=== PATIENT | male | born 1995 | race African-American/Black ===

== ENCOUNTER 2021-05-09 19:12 | Emergency (ER) | payer OTHER, SELFPAY ==
--- NOTE | ~2021-05-09 | CT_ITS ---
EXAMINATION: CTA chest PE protocol DATE: 05/09/2021 23:59 INDICATION: Chest pain with multiple masses on prior chest radiograph. TECHNIQUE: Computed tomography (CT) pulmonary angiogram of the chest was performed with 100 mL Omnipa que-350 intravenous contrast. Additional 3D reconstructions utilizing coronal maximum intensity proje ction (MIP) were performed. Automated exposure control and iterative reconstruction technique were em ployed. The dose-length product was 222.48 mGy-cm. COMPARISON: None FINDINGS: Excellent contrast opacification of the pulmonary arteries. There is mild streak artifact from dense contrast in the superior vena cava and right atrium. No significant respiratory motion artifact yield ing diagnostic quality study which demonstrates no pulmonary embolism. Again seen are multiple masses scattered throughout both lungs, many containing central air bronchograms without evident architectu ral distortion. In addition there are regions with numerous tiny pulmonary nodules both along the mar gins of the masses as well as along the pleura, subtalar and bronchovascular structures. Appearance w ould be most consistent with sarcoidosis. No pleural effusion or pulmonary edema. Heart size is tatianna l. No pericardial effusion. There is bilateral hilar and mediastinal lymphadenopathy. Thoracic aorta is normal in caliber with no dissection. Visualized upper abdomen including the liver are unremarkabl e. No pathologically enlarged upper abdominal lymphadenopathy. Bones are unremarkable. IMPRESSION: 1. Diagnostic quality study demonstrating no pulmonary embolus. 2. Numerous tiny pulmonary nodules and multiple larger air bronchogram containing masses which along with the distal and bilateral hilar lymphadenopathy is most suspicious for sarcoidosis. Differential would include less likely lymphoma or other atypical infection. Reviewed, dictated and finalized at location A. IMPRESSION: 1. Diagnostic quality study demonstrating no pulmonary embolus. 2. Numerous tiny pulmonary nodules and multiple larger air bronchogram containi ng masses which along with the distal and bilateral hilar lymphadenopathy is mo st suspicious for sarcoidosis. Differential would include less likely lymphoma or other atypical infection.
--- NOTE | ~2021-05-09 | XR_ITS ---
EXAMINATION: XR chest 2V DATE: 05/09/2021 20:09 INDICATION: Shortness of breath. Left-sided chest pain and coughing. TECHNIQUE: PA and lateral views of the chest were obtained. COMPARISON: None FINDINGS: Multiple bilateral nodular and masslike opacities throughout both lungs relatively sparing the bases and anterior lungs. No pulmonary edema, pleural effusion or pneumothorax. The cardiomediastinal silho uette is normal. Visualized bones and soft tissues are unremarkable. IMPRESSION: 1. Multiple nodular and masslike opacities throughout both lungs which given patient age most likely infectious in etiology . Or less likely differential would include metastatic disease in the appropri ate clinical setting or other more rare lung diseases such as sarcoidosis or pneumoconioses. Correlat e clinically and if indicated could consider chest CT for further evaluation as clinically indicated. Reviewed, dictated and finalized at location A. IMPRESSION: 1. Multiple nodular and masslike opacities throughout both lungs which given pa tient age most likely infectious in etiology . Or less likely differential woul d include metastatic disease in the appropriate clinical setting or other more rare lung diseases such as sarcoidosis or pneumoconioses. Correlate clinically and if indicated could consider chest CT for further evaluation as clinically i ndicated.
--- NOTE | 2021-05-09 19:48 | ECG_ITS ---
Measurements Intervals [place] Rate: 65 P: 51 [place]: 119 QRS: 63 QRSD: 88 T: 53 QT: 365 QTc: 382 Interpretive Statements SINUS RHYTHM WITH SINUS ARRHYTHMIA WITH SHORT [place] INTERVAL MINIMAL Q WAVES- ANTEROLATERAL LEADS ST ELEVATION IN DIFFUSE LEADS- PROBABLY EARLY REPOLARIZATION ABNORMALITY BORDERLINE ECG Electronically Signed On 05-10-2021 5:47:41 CDT by Willie Bravo D.O.
[2021-05-09 20:15] VITALS: BP 140/69; PULSE 80; RESP 12; TEMP 37.3; O2SAT 100
[2021-05-09 20:58] LABS: Basophils Absolute Auto 0.1 K/mm3 (0.0-0.1); Basophils Percent Auto 0.4 % (0.2-1.2); Eosinophils Absolute Auto 0.4 K/mm3 (0-0.3); Eosinophils Percent Auto 3.3 % (0-4.4); Hemoglobin 13.6 g/dL (14.0-18.0); Immature Granulocyte Absolute 0.05 K/mm3 (0.00-0.031); Immature Granulocyte Percent A 0.4 % (0-0.5); Lymphocytes Absolute Auto 1.52 K/mm3 (0.9-3.2); Lymphocytes Percent Auto 13.1 % (18.3-44.2); Mean Corpuscular HGB Conc 30.2 g/dl (32-36); Mean Corpuscular Hemoglobin 24.8 pg (26-34); Mean Corpuscular Volume 82.1 fl (80-100); Mean Platelet Volume 10.2 fl (7.4-10.4); Monocytes Percent Auto 8.4 % (2.6-8.5); Neutrophils Absolute Auto 8.6 K/mm3 (1.3-6.7); Neutrophils Percent Auto 74.4 % (45.5-73.1); Platelet Count Result 397 k/mm3 (150-375); Red Blood Count 5.48 M/mm3 (4.6-6.20); Red Cell Distribution Width 13.8 % (11.5-14.5); White Blood Count 11.6 K/mm3 (4.5-10.0)
[2021-05-09 21:06] LABS: Anion Gap 10 mmol/L (8-16); Blood Urea Nitrogen 9 mg/dL (9-20); Carbon Dioxide 29 mmol/L (22-30); Chloride 97 mmol/L (98-107); Estimated CRCL calculation 82 ml/min; Estimated Glomerular Filt Rate > 60; Glucose 79 mg/dL (65-110); Potassium 4.1 mmol/L (3.4-5.0); Sodium 136 mmol/L (137-145)
[2021-05-09 22:04] VITALS: BP 134/81; PULSE 82; RESP 19; O2SAT 99
[2021-05-09 23:09] VITALS: BP 122/72; PULSE 84; RESP 26; O2SAT 98
--- NOTE | 2021-05-09 23:45 | ED.SOB ---
HPI - SOB/Dyspnea General Chief Complaint: Shortness of Breath/Dyspnea Stated Complaint: sob- cant take deep breathes in Time Seen by Provider: 05/09/21 21:51 Source: patient and RN notes reviewed Mode of arrival: ambulatory Limitations: no limitations History of Present Illness HPI Narrative: This 25 year old male smoker who presents for evaluation of worsening cough and left rib pain. Patient states he has had increasing cough for 3 months. He has been having left lateral rib pain for 1 month. He reports sharp nonradiating pain with inspiration. He finally came to ER because his pain is worse and it is making it difficulty to take a breath. He denies night sweats, weight loss, nausea, vomiting or fever. He reports both his patients have history of cancer. He smokes 2 packs of cigarettes for week. Related Data Allergies Allergy/AdvReac Type Severity Reaction Status Date / Time No Known Allergies Allergy Verified 05/10/21 00:42 Review of Systems Review of Systems: All systems reviewed & are unremarkable except as noted in HPI and below PMFSH Past Medical History Medical History (Updated 05/10/21 @ 01:04 by Jacqueline Escobar MD) Patient denies medical problems Surgical History Surgical History (Updated 05/09/21 @ 23:50 by Jacqueline Escobar MD) H/O eye surgery Social History Social History (Updated 05/09/21 @ 23:50 by Jacqueline Escobar MD) Smoking packs per day: 0.5 Smoking cigarettes per day: 10.0 Smoking status: Current every day smoker Gender identity (if verbalized by the patient): Male Exam Const: General: no acute distress and alert Orientation/consciousness: patient oriented x3 Eyes: EOM: EOMs intact bilaterally Chest: Chest palpation & inspection: normal inspection of the chest Resp: Effort & Inspection: normal respiratory effort and no retractions Auscultation: clear to auscultation bilaterally Cardio: Rate: regular rate Rhythm: regular rhythm Heart sounds: no murmurs GI: GI Palp: Yes Soft to palpation, No Tenderness to palpation present (GI) and No Guarding due to palpation present (GI) Auscultation: normal bowel sounds Skin: General skin exam: normal color Rashes: no rashes Neuro: General: patient oriented x3, moves all extremities and CN's II-XI intact bilaterally Psych: Mental Status: mental status grossly normal Affect: normal affect Course Reevaluation(s) Reevaluation #1: I have discussed with patient CT findings, and I discussed he will need to get evaluated by pulmonary. Date: 05/10/21 Time: 01:00 Vital Signs Vital signs: Vital Signs Temperature 99.2 F 05/09/21 20:15 Pulse Rate 80 05/09/21 20:15 Respiratory Rate 12 05/09/21 20:15 Blood Pressure 140/69 05/09/21 20:15 Pulse Oximetry 100 05/09/21 20:15 Temperature 99.2 F 05/09/21 20:15 Pulse Rate 85 05/10/21 01:26 Respiratory Rate 16 05/10/21 01:26 Blood Pressure 122/70 05/10/21 01:26 Pulse Oximetry 100 05/10/21 01:26 MDM - SOB/Dyspnea Lab Data Attestation: I reviewed the patient's lab results. Result diagrams: 05/09/21 20:49 05/09/21 20:49 Labs: Lab Results 05/09/21 05/09/21 Range/Units 20:49 20:49 WBC 11.6 H (4.5-10.0) K/mm3 RBC 5.48 (4.6-6.20) M/mm3 Hgb 13.6 L (14.0-18.0) g/dL Hct 45.0 (42.0-52.0) % MCV 82.1 (80-100) fl MCH 24.8 L (26-34) pg MCHC 30.2 L (32-36) g/dl RDW 13.8 (11.5-14.5) % Plt Count 397 H (150-375) k/mm3 MPV 10.2 (7.4-10.4) fl Immature Gran % (Auto) 0.4 (0-0.5) % Neut % (Auto) 74.4 H (45.5-73.1) % Lymph % (Auto) 13.1 L (18.3-44.2) % Banks % (Auto) 8.4 (2.6-8.5) % Eos % (Auto) 3.3 (0-4.4) % Baso % (Auto) 0.4 (0.2-1.2) % Lymph # (Auto) 1.52 (0.9-3.2) K/mm3 [place] # (Auto) 1.0 H (0.1-0.6) K/mm3 Eos # (Auto) 0.4 H (0-0.3) K/mm3 Baso # (Auto) 0.1 (0.0-0.1) K/mm3 Abs Immat Gran (auto) 0.05 H (0.00-0.031) K/mm3 Ab
[2021-05-10 00:29] VITALS: BP 121/72; PULSE 77; RESP 23; O2SAT 99
[2021-05-10] MEDS: KETOROLAC 30 MG/ML VIAL (*BKC) IV PUSH (00:43)
[2021-05-10 01:26] VITALS: BP 122/70; PULSE 85; RESP 16; O2SAT 100
== END 2021-05-10 01:20 | disposition home or self-care (01) ==
PROVIDERS: Emergency Medicine; Emergency Provider General Practice
DX: J18.9 Pneumonia, unspecified organism (principal); R91.8 Other nonspecific abnormal finding of lung field; F17.210 Nicotine dependence, cigarettes, uncomplicated; R94.31 Abnormal electrocardiogram [ECG] [EKG]
CPT/HCPCS: 36415; 71046; 71275; 80048; 85025; 93005; 96374; 99284; J1885; Q9967